=== PATIENT | male | born 1975 | race Caucasian/White ===

== ENCOUNTER 2019-02-06 21:41 | Emergency (ER) | payer MEDICAID ==
[~2019-02-06] VITALS: Ht 170.2 cm; Wt 90.7 kg
[2019-02-06 21:48] VITALS: BP_SYST 138
--- NOTE | 2019-02-06 21:51 | NUR ---
Placed in room 03 . Placed on air sampling and monitoring, blood pressure machine and pulse oximeter. To gown for exam. Side rails up. Report given to Edgar LERNER.
--- NOTE | 2019-02-06 22:00 | NUR ---
Pt BIB family to ED C/O difficulty breathing, pt states possible allergic rxn right after dinner. No Hx of anything related. VSS, pt states self medicating with benadryl with only minimal relief. No other complaints and or injuries noted at this time. No s/s of acute distress. Resting on gurney with rails up
--- NOTE | 2019-02-06 23:05 | NUR ---
Dr. Chi bedside for pt eval
[2019-02-06] MEDS ORDERED: FAMOTIDINE 20 MG TABLET PO ONE (23:15)
[2019-02-06] MEDS ORDERED: PREDNISONE 20 MG TABLET PO ONE (23:15)
[2019-02-06] MEDS ORDERED: DIPHENHYDRAMINE HCL 25 MG CAPSULE PO ONE (23:15)
[2019-02-06 23:25] VITALS: BP_SYST 138
--- NOTE | 2019-02-06 23:25 | NUR ---
Patient given written and verbal discharge instructions and verbalizes understanding. ER MD discussed with patient the results and treatment provided. Patient in stable condition. ID arm band removed. Rx of Prednisone given. Patient educated on pain management and to follow up with PMD. Pain Scale 0/10. Opportunity for questions provided and answered. Medication side effect fact sheet provided.
== END 2019-02-06 23:25 | disposition home or self-care (01) ==
LOC: SED 21:41
DX: T78.40XA Allergy, unspecified, initial encounter (principal); R03.0 Elevated blood-pressure reading, without diagnosis of hypertension; X58.XXXA Exposure to other specified factors, initial encounter
CPT/HCPCS: 99284; J7512; Q0163